=== PATIENT | male | born 1960 | race Asian ===

== ENCOUNTER 2016-08-12 22:36 | Inpatient (IN) | payer BC ==
[~2016-08-12] VITALS: Ht 177.8 cm; Wt 75.3 kg
[2016-08-12 23:18] LABS: BASOPHIL % 0.6 % (0-2); PLATELET COUNT 179 x10^3mcL (130-400); RED CELL DISTRIBUTION WIDTH 12.9 % (11.5-14.5)
[2016-08-12 23:28] LABS: CALCIUM 8.6 mg/dL (8.5-10.1); CARBON DIOXIDE 29.9 mmol/L (21-32); CHLORIDE SERUM 102 mmol/L (98-107); GFR1 > 60 mL/min; GLUCOSE SERUM 160 mg/dL (74-106); POTASSIUM SERUM 3.6 mmol/L (3.5-5.1); SODIUM SERUM 136 mmol/L (136-145)
[2016-08-12 23:32] LABS: ALBUMIN 3.5 g/dL (3.4-5.0); ALKALINE PHOSPHATASE 89 U/L (46-116); ALT/SGPT 25 U/L (16-63); AST/SGOT 25 U/L (15-37); BILIRUBIN TOTAL 1.1 mg/dL (0.20-1.00); TOTAL PROTEIN, SERUM 7.2 g/dL (6.4-8.2)
[2016-08-13 00:54] LABS: microscopic required? NO
[2016-08-13 01:10] LABS: urine erythrocyte NEGATIVE (NEGATIVE)
[2016-08-13 01:26] LABS: CHOLESTEROL/HDL RATIO 3.5; MAGNESIUM 2.1 mg/dL (1.8-2.4); PHOSPHOROUS 3.3 mg/dL (2.5-4.9)
[2016-08-13 01:30] LABS: AMPHETAMINE QUAL UR NONE DETECTED (NEG <=1000)
[2016-08-13 01:35] LABS: FREE T4 0.99 ng/dL (0.76-1.46); T4(THYROXINE) 9.1 ug/dL (4.7-13.3)
[2016-08-13] MEDS ORDERED: SIMVASTATIN20 M1 PO (01:35)
[2016-08-13 02:17] LABS: T3 TOTAL 1.47 ng/mL
[2016-08-13 03:31] VITALS: BP 144/99
[2016-08-13 06:24] VITALS: BP 111/62
[2016-08-13 08:30] LABS: CALCIUM 8.2 mg/dL (8.5-10.1); CARBON DIOXIDE 28.4 mmol/L (21-32); CHLORIDE SERUM 103 mmol/L (98-107); CREATININE SERUM 0.9 mg/dL (0.7-1.3); GFR1 > 60 mL/min; GLUCOSE SERUM 128 mg/dL (74-106); POTASSIUM SERUM 4.1 mmol/L (3.5-5.1); SODIUM SERUM 136 mmol/L (136-145)
[2016-08-13 10:03] VITALS: Ht 177.8 cm; Wt 75.3 kg
[2016-08-13 13:16] VITALS: BP 121/62
[2016-08-13 15:06] VITALS: BP 121/62
[2016-08-13] MEDS ORDERED: HEP5I IV (15:16)
[2016-08-13] MEDS ORDERED: ASP325 PO (15:26)
[2016-08-13] MEDS ORDERED: NIT0.4 SL (15:26)
[2016-08-13] MEDS ORDERED: APAP/HYDROCODON1 T13 PO (15:26)
[2016-08-13] MEDS ORDERED: COL100 PO (15:26)
[2016-08-13] MEDS ORDERED: THERA TABS1 TAB PO (15:28)
[2016-08-13] MEDS ORDERED: ZOFI IV (15:28)
[2016-08-13] MEDS ORDERED: HUMULIN R100 U/1 M1 SC (15:28)
[2016-08-13] MEDS ORDERED: PRI20 PO (15:28)
[2016-08-13] MEDS ORDERED: BG FS (15:28)
== END 2016-08-13 15:31 | disposition short-term general hospital (02) | DRG 281 ==
LOC: ED 22:36 → IC 08-13 00:29 → DU 08-13 00:29 → IC 08-13 09:17
PROVIDERS: Emergency Medicine; ADMIT Family Medicine
DX: I21.4 Non-ST elevation (NSTEMI) myocardial infarction (principal); I23.7 Postinfarction angina; I25.118 Atherosclerotic heart disease of native coronary artery with other forms of angina pectoris; K21.9 Gastro-esophageal reflux disease without esophagitis; E78.5 Hyperlipidemia, unspecified; I10 Essential (primary) hypertension; E11.9 Type 2 diabetes mellitus without complications; E78.00 Pure hypercholesterolemia, unspecified; I16.0 Hypertensive urgency; Z82.49 Family history of ischemic heart disease and other diseases of the circulatory system; Z87.891 Personal history of nicotine dependence
CPT/HCPCS: 82962; 83880; 84439; C9113; J1642; J1644; J2001; J2060; J2270; J3490; Q0092; Q9967